=== PATIENT | male | born 1970 | race Caucasian/White ===

== ENCOUNTER 2016-08-30 20:39 | Emergency (ER) | payer SELFPAY ==
[~2016-08-30] VITALS: Ht 180.3 cm; Wt 78.0 kg
[2016-08-30 20:40] VITALS: BP 146/73; PULSE 99; RESP 16; TEMP 98.6; O2SAT 99
== END 2016-08-30 23:59 | disposition left against medical advice (07) ==
LOC: NED 20:39
DX: L98.9 Disorder of the skin and subcutaneous tissue, unspecified (principal)
CPT/HCPCS: 99281